=== PATIENT | male | born 1975 | race Caucasian/White ===

== ENCOUNTER → 2020-05-04 | Outpatient (CLI) | payer BC, OTHER ==
--- NOTE | 2020-06-02 07:21 | REP ---
RIGHT TIBIA/FIBULA SERIES: CLINICAL: Right lower extremity pain. TECHNIQUE: AP and lateral views of the right tibia/fibula. FINDINGS: No acute fracture or dislocation. Structures, joint spaces and surrounding soft tissues are normal. IMPRESSION: No acute fracture or dislocation. MTDD
== END ==
LOC: M WUC 09:59
PROVIDERS: ATTEND Nurse Practitioner Family
DX: M79.661 Pain in right lower leg (principal)